=== PATIENT | male | born 2000 | race Caucasian/White ===

== ENCOUNTER → 2021-11-08 | Outpatient (CLI) | payer OTHER | LOC: RAD 08:23 | DX: M75.101 Unspecified rotator cuff tear or rupture of right shoulder, not specified as traumatic (principal); S43.431A Superior glenoid labrum lesion of right shoulder, initial encounter; X58.XXXA Exposure to other specified factors, initial encounter | CPT/HCPCS: 73040; 73222; A9577; Q9967 ==